=== PATIENT | female | born 1960 | race Caucasian/White ===

== ENCOUNTER 2018-05-20 13:36 | Emergency (ER) | payer OTHER ==
[2018-05-20] MEDS ORDERED: METHYLPREDNISOLONE 125 MG INJ ONE (13:54)
[2018-05-20] MEDS ORDERED: IPRATROPIUM BROM 0.5MG/2.5ML ONE (13:54)
[2018-05-20] MEDS ORDERED: ALBUTEROL 2.5 MG/3 ML NEB SOL ONE (13:54)
[2018-05-20] MEDS ORDERED: predniSONE 20 MG TAB ONE (13:58)
[2018-05-20 14:16] LABS: Absolute Lymphocytes (CBC) 1.1 K/uL (0.7-4.9); Absolute Monocytes 0.6 K/uL (0.1-1.3); Absolute Neutrophil 6.1 K/uL (1.8-8.0); Basophils % 0.2 % (0-1.3); Eosinophils % 1.1 % (0-4.4); Hematocrit 49.5 % (36.0-45.0); Lymphocytes % 14.4 % (15.3-44.8); MCH 32.9 pg (27.0-35.0); MCV 95.1 fL (80-100); MPV 7.6 fL (7.6-11.3); Monocytes % 7.3 % (3.3-12.3); RBC Red Blood Cell Count 5.21 M/uL (3.86-4.86)
[2018-05-20 14:20] LABS: Protime INR 0.98
[2018-05-20 14:50] LABS: ALT/SGPT 19 U/L (12-78); AST/SGOT 16 U/L (15-37); Albumin 3.9 g/dL (3.4-5.0); Alkaline Phosphatase 91 U/L (45-117); BUN Blood Urea Nitrogen 6 mg/dL (7-18); Bicarbonate 26 mmol/L (21-32); Bilirubin Direct 0.1 mg/dL (0-0.2); Bilirubin Total 0.5 mg/dL (0.2-1.0); CKMB Creatine Kinase MB < 1.0 ng/mL (0.3-3.6); Creatine Phosphokinase 31 U/L (26-192); Glucose Level 115 mg/dL (74-106); Magnesium 1.8 mg/dL (1.8-2.4); NT PRO-BNP 157 pg/mL (<125); Potassium 3.9 mmol/L (3.5-5.1); Protein, Total 7.2 g/dL (6.4-8.2); Sodium Level 132 mmol/L (136-145)
[2018-05-20 14:54] LABS: Alcohol Serum/Plasma < 3 mg/dL (0-3)
--- NOTE | 2018-05-20 14:57 | RAD REPORT ---
EXAM DESCRIPTION: RAD - Chest Single View - 05/20/2018 2:33 pm CLINICAL HISTORY: SOB Chest pain. COMPARISON: No comparisons FINDINGS: Portable technique limits examination quality. The lungs are grossly clear. The heart is normal in size. No displaced fractures. IMPRESSION: No acute intrathoracic process suspected.
--- NOTE | 2018-05-20 15:06 | EKG ---
Test Date: 2018-05-20 Test Time: 13:53:32 Vinyl Dipper: FERNANDO MEASUREMENT RESULTS: Intervals: Rate: 94 MI: 138 QRSD: 80 QT: 368 QTc: 460 [place]: P: 68 MI: 138 QRS: 70 T: 68 INTERPRETIVE STATEMENTS: Normal sinus rhythm Normal ECG No previous ECG available for comparison Electronically Signed On 05-20-18 15:06:03 CDT by Flaco Rayo
[2018-05-20] MEDS ORDERED: ACETAMINOPHEN 500 MG TAB ONE (15:39)
[2018-05-20] MEDS ORDERED: ONDANSETRON 4 MG (ODT) TAB ONE (15:40)
[2018-05-20] MEDS ORDERED: NA CHLORIDE 0.9% 1,000 ML ONE (16:00)
--- NOTE | 2018-05-20 16:13 | EDPHYS ---
Physician Documentation [facility] Name: Elvie Knott Age: 57 yrs Sex: Female : 1960 Arrival Date: 05/20/2018 Time: 13:44 Bed 26 Private MD: ED Physician Prasanth Nolen HPI: 05/20 14:05 This 57 yrs old Female presents to ER via EMS with complaints of Shortness Of pm1 Breath. 14:05 The patient has shortness of breath at rest. Onset: The symptoms/episode began/occurred pm1 today. Duration: The symptoms are continuous. The patient's shortness of breath is aggravated by nothing, is alleviated by nothing. Associated signs and symptoms: Pertinent positives: fever, nausea, vomiting, Pertinent negatives: chest pain, non-productive cough, productive cough. Severity of symptoms: in the emergency department the symptoms have improved. The patient has experienced similar episodes in the past, multiple times. The patient has not recently seen a physician. Historical: - Home Meds: 14:28 montelukast 10 mg oral tab 1 tab once daily [Active]; hydrochlorothiazide 25 mg Oral tl3 tab 1 tab once daily [Active]; Spiriva with HandiHaler 18 mcg inhalation CpDv 1 cap once daily [Active]; flunisolide 25 mcg (0.025 %) Nasal spry 2 sprays 2 times per day [Active]; sertraline 100 mg oral tab 2 tabs once daily [Active]; aspirin 81 mg Oral chew 1 tab once daily [Active]; Qvar 40 mcg/actuation inhalation aero 1 puff 2 times per day [Active]; Ventolin Rotahaler/Rotacaps Inhl daily [Active]; ProAir HFA 90 mcg/actuation inhalation HFAA 1 puff every 4 hours [Active]; - PMHx: 14:28 Depression; Hypertension; tl3 - Immunization history:: Adult Immunizations unknown. - Social history:: Smoking status: unknown. - Ebola Screening: : No symptoms or risks identified at this time. ROS: 14:05 Constitutional: Negative for fever, chills, and weight loss, Eyes: Negative for injury, pm1 pain, redness, and discharge, ENT: Negative for injury, pain, and discharge, Neck: Negative for injury, pain, and swelling, Cardiovascular: Negative for chest pain, palpitations, and edema. 14:05 Abdomen/GI: Negative for abdominal pain, nausea, vomiting, diarrhea, and constipation, Back: Negative for injury and pain, : Negative for injury, bleeding, discharge, and swelling, MS/Extremity: Negative for injury and deformity, Skin: Negative for injury, rash, and discoloration, Neuro: Negative for headache, weakness, numbness, tingling, and seizure. 14:05 Respiratory: Positive for shortness of breath, Negative for cough, sputum production, wheezing. Exam: 14:05 Constitutional: This is a well developed, well nourished patient who is awake, alert, pm1 and in no acute distress. Head/Face: Normocephalic, atraumatic. Eyes: Pupils equal round and reactive to light, extra-ocular motions intact. Lids and lashes normal. Conjunctiva and sclera are non-icteric and not injected. Cornea within normal limits. Periorbital areas with no swelling, redness, or edema. ENT: Nares patent. No nasal discharge, no septal abnormalities noted. Tympanic membranes are normal and external auditory canals are clear. Oropharynx with no redness, swelling, or masses, exudates, or evidence of obstruction, uvula midline. Mucous membranes moist. Neck: Trachea midline, no thyromegaly or masses palpated, and no cervical lymphadenopathy. Supple, full range of motion without nuchal rigidity, or vertebral point tenderness. No Meningismus. Chest/axilla: Normal chest wall appearance and motion. Nontender with no deformity. No lesions are appreciated. Cardiovascular: Regular rate and rhythm with a normal S1 and S2. No gallops, murmurs, or rubs. Normal PMI, no JVD. No pulse deficits. 14:05 Abdomen/GI: Soft, non-tender, with normal bowel sounds. No distension or tympany. No guarding or rebound. No evidence of tenderness throughout. Back: No spinal tenderness. No costovertebral tenderness. Full range of motion. Skin: Warm, dry with normal turgor. Normal color with no rashes, no lesions, and no evidence of cellulitis. MS/ Extremity: Pulses equal, no cyanosis. Neurovascular intact. Full, normal range of motion. 14:05 Respiratory: the patient does not display signs of respiratory distress, Respirations: normal, Breath sounds: rhonchi, are heard diffusely. 14:05 Neuro: Orientation: is normal, Motor: is normal, moves all fours. 16:11 Respiratory: the patient does not display signs of respiratory distress, Respirations: pm1 normal, Breath sounds: are clear throughout, no decreased breath sounds, no rales, rhonchi, no wheezing, improvement post breathing treatments given. Vital Signs: 13:50 BP 160 / 109; Pulse 98; Resp 20; Temp 98.7; Pulse Ox 97% on 2 lpm NC; tl3 14:28 BP 155 / 113 Supine; Pulse 95; tl3 14:28 BP 157 / 103 Sitting; Pulse 97; tl3 14:28 BP 129 / 109 Standing; Pulse 110; tl3 15:29 BP 120 / 88; Pulse 115; Resp 20; Pulse Ox 95% on R/A; tl3 17:34 BP 118 / 67; Pulse 112; Resp 18; Pulse Ox 95% ; tl3 19:32 BP 125 / 81; Pulse 105; Resp 18; Pulse Ox 95% on R/A; tl3 MDM: 13:45 Patient medically screened. pm1 16:10 ED course: patient without any symptoms of indications of Geodon withdrawal. Patient pm1 without abnormal body or facial movements post breathing treatments given. 16:11 Data reviewed: vital signs. Counseling: I had a detailed discussion with the patient pm1 and/or guardian regarding: the historical points, exam findings, and any diagnostic results supporting the discharge/admit diagnosis, lab results, radiology results, the need for outpatient follow up, to return to the emergency department if symptoms worsen or persist or if there are any questions or concerns that arise at home. 05/20 13:55 Order name: Basic Metabolic Panel; Complete Time: 15:04 pm1 05/20 13:55 Order name: CBC with Diff; Complete Time: 15:04 pm1 05/20 13:55 Order name: Ckmb; Complete Time: 15:04 pm1 05/20 13:55 Order name: CPK; Complete Time: 15:04 pm1 05/20 13:55 Order name: LFT's; Complete Time: 15:04 pm1 05/20 13:55 Order name: Magnesium; Complete Time: 15:04 pm1 05/20 13:55 Order name: NT PRO-BNP; Complete Time: 15:04 pm1 07/12 13:55 Order name: PT-INR; Complete Time: 15:04 pm1 05/20 13:55 Order name: Ptt, Activated; Complete Time: 15:04 pm1 05/20 13:55 Order name: Troponin (emerg Dept Use Only); Complete Time: 15:04 pm1 05/20 13:55 Order name: Acetaminophen; Complete Time: 15:04 pm1 05/20 13:55 Order name: ETOH Level; Complete Time: 15:04 pm1 05/20 13:55 Order name: Salicylate; Complete Time: 15:04 pm1 05/20 13:55 Order name: Urine Drug Screen; Complete Time: 18:34 pm1 05/20 13:55 Order name: Urine Test (obtain specimen); Complete Time: 19:37 pm1 05/20 13:55 Order name: XRAY Chest (1 view); Complete Time: 15:04 pm1 05/20 13:55 Order name: EKG; Complete Time: 13:56 pm1 05/20 13:55 Order name: Cardiac monitoring; Complete Time: 14:31 pm1 05/20 13:55 Order name: EKG - Nurse/Tech; Complete Time: 14:12 pm1 05/20 13:55 Order name: IV Saline Lock; Complete Time: 14:13 pm1 05/20 13:55 Order name: Labs collected and sent; Complete Time: 14:13 pm1 05/20 15:27 Order name: Glucose, Ancillary Testing; Complete Time: 15:35 EDMS 05/20 17:57 Order name: Urine Dipstick--Ancillary (enter results); Complete Time: 18:34 ag 05/20 17:57 Order name: Urine --Ancillary (enter results); Complete Time: 18:34 ag 05/20 13:55 Order name: O2 Per Protocol; Complete Time: 14:13 pm1 05/20 13:55 Order name: O2 Sat Monitoring; Complete Time: 14:13 pm1 05/20 13:55 Order name: Urine Dipstick-Ancillary (obtain specimen); Complete Time: 14:31 pm1 Administered Medications: 13:55 Drug: Albuterol - atroVENT (3:1) (2.5 mg - 0.5 mg) 3 ml Route: Nebulizer; tl3 15:31 Follow up: Response: Wheezing diminished tl3 13:55 Drug: predniSONE 60 mg Route: PO; tl3 15:31 Follow up: Response: No adverse reaction tl3 15:35 Drug: Tylenol 1000 mg Route: PO; mg2 19:35 Follow up: Response: No adverse reaction; Pain is decreased tl3 15:35 Drug: Zofran 4 mg Route: PO; mg2 19:34 Follow up: Response: No adverse reaction tl3 15:54 CANCELLED (Duplicate Order): Zofran 4 mg IVP once; over 2 minutes mg2 15:55 Drug: NS 0.9% 500 ml Route: IV; Rate: bolus; Site: right forearm; Delivery: Primary mg2 tubing; 17:39 Follow up: IV Status: Completed infusion; IV Intake: 500ml tl3 Point of Care Testing: Blood Glucose: 13:50 Blood Glucose: 98 mg/dL; jp3 Ranges: Critical Glucose Levels:Adult <50 mg/dl or >400 mg/dl <40 mg/dl or >180 mg/dl Disposition: 05/21 14:16 Co-signature as Attending Physician, Prasanth Nolen MD I agree with the assessment and kdr plan of care. Disposition: 05/20/18 16:12 Discharged to Home. Impression: Chronic obstructive pulmonary disease with (acute) exacerbation. - Condition is Stable. - Discharge Instructions: Chronic Obstructive Pulmonary Disease, How to Use an Inhaler. - Prescriptions for Prednisone 20 mg Oral Tablet - take 3 tablet by ORAL route once daily for 5 days; 15 tablet. Albuterol Sulfate 90 mcg/actuation - inhale 1-2 puff by INHALATION route every 4-6 hours; 1 Inhaler. - Medication Reconciliation Form, Thank You Letter, Antibiotic Education form. - Follow up: Emergency Department; When: As needed; Reason: Worsening of condition. Follow up: Private Physician; When: 2 - 3 days; Reason: Recheck today's complaints, Continuance of care, Re-evaluation by your physician. - Problem is new. - Symptoms have improved. Signatures: Dispatcher [employer] EDMS Prasanth Nolen MD MD kdr Shankar Kenney NP RESOURCE ENGINEER pm1 Jen Bae RN RN tl3 Ever Greene RN RN mg2 Corrections: (The following items were deleted from the chart) 05/20 15:54 15:35 Zofran 4 mg IVP once; over 2 minutes ordered. pm1 mg2 15:54 15:54 Zofran 4 mg IVP once; over 2 minutes ordered. mg2 mg2 19:36 16:12 05/20/2018 16:12 Discharged to Home. Impression: Chronic obstructive pulmonary tl3 disease with (acute) exacerbation. Condition is Stable. Forms are Medication Reconciliation Form, Thank You Letter, Antibiotic Education, Prescription Opioid Use. Follow up: Emergency Department; When: As needed; Reason: Worsening of condition. Follow up: Private Physician; When: 2 - 3 days; Reason: Recheck today's complaints, Continuance of care, Re-evaluation by your physician. Problem is new. Symptoms have improved. pm1
--- NOTE | 2018-05-20 16:13 | ER ---
Nurse's Notes [facility] Name: Elive Knott Age: 57 yrs Sex: Female : 1960 Arrival Date: 05/20/2018 Time: 13:44 Bed 26 Private MD: Diagnosis: Chronic obstructive pulmonary disease with (acute) exacerbation Presentation: 05/20 13:44 Presenting complaint: EMS [place], she has run out of tl3 her Haldol and thinks she is going thru withdrawal symptoms, hx of COPD needed supplemental O2 to maintain sats, BBS coarse with wheezing throughout. Transition of care: patient was not received from another setting of care. Onset of symptoms was May 20, 2018 at 13:47. Risk Assessment: Do you want to hurt yourself or someone else? Patient reports no desire to harm self or others. Initial Sepsis Screen: Does the patient meet any 2 criteria? No. Patient's initial sepsis screen is negative. Does the patient have a suspected source of infection? No. Patient's initial sepsis screen is negative. Care prior to arrival: None. 13:44 Method Of Arrival: EMS: [facility] tl3 13:44 Acuity: NORY 3 tl3 Triage Assessment: 13:44 General: Appears distressed, uncomfortable, unkempt, Behavior is cooperative, tl3 appropriate for age. Pain: Denies pain. EENT: No signs and/or symptoms were reported regarding the EENT system. Neuro: Level of Consciousness is awake, alert, obeys commands, Oriented to person, place, time, situation, Appropriate for age. Cardiovascular: Heart tones S1 S2 present Patient's skin is warm and dry. Respiratory: Reports shortness of breath at rest Onset: The symptoms/episode began/occurred gradually, the patient has moderate shortness of breath. GI: No signs and/or symptoms were reported involving the gastrointestinal system. : No signs and/or symptoms were reported regarding the genitourinary system. Derm: No signs and/or symptoms reported regarding the dermatologic system. Musculoskeletal: No signs and/or symptoms reported regarding the musculoskeletal system. Historical: - Home Meds: 14:28 montelukast 10 mg oral tab 1 tab once daily [Active]; hydrochlorothiazide 25 mg Oral tl3 tab 1 tab once daily [Active]; Spiriva with HandiHaler 18 mcg inhalation CpDv 1 cap once daily [Active]; flunisolide 25 mcg (0.025 %) Nasal spry 2 sprays 2 times per day [Active]; sertraline 100 mg oral tab 2 tabs once daily [Active]; aspirin 81 mg Oral chew 1 tab once daily [Active]; Qvar 40 mcg/actuation inhalation aero 1 puff 2 times per day [Active]; Ventolin Rotahaler/Rotacaps Inhl daily [Active]; ProAir HFA 90 mcg/actuation inhalation HFAA 1 puff every 4 hours [Active]; - PMHx: 14:28 Depression; Hypertension; tl3 - Immunization history:: Adult Immunizations unknown. - Social history:: Smoking status: unknown. - Ebola Screening: : No symptoms or risks identified at this time. Screenin:28 Abuse screen: Denies threats or abuse. Nutritional screening: No deficits noted. tl3 Tuberculosis screening: No symptoms or risk factors identified. Fall Risk None identified. Assessment: 14:22 Reassessment: No changes from previously documented assessment. Cardiovascular: Rhythm tl3 is regular. Respiratory: Airway is patent Respiratory effort is even, labored, Respiratory pattern is regular, symmetrical, Breath sounds are coarse bilaterally. Breath sounds with wheezes bilaterally. 15:29 Reassessment: Patient appears in no apparent distress at this time. Patient and/or tl3 family updated on plan of care and expected duration. Pain level reassessed. Patient is alert, oriented x 3, equal unlabored respirations, skin warm/dry/pink. pt feels much better, BBS clear. 17:34 Reassessment: Patient appears in no apparent distress at this time. No changes from tl3 previously documented assessment. Patient and/or family updated on plan of care and expected duration. Pain level reassessed. Patient is alert, oriented x 3, equal unlabored respirations, skin warm/dry/pink. pt able to ambulate to for urine sample. 19:32 Reassessment: Patient appears in no apparent distress at this time. No changes from tl3 previously documented assessment. Patient and/or family updated on plan of care and expected duration. Pain level reassessed. Patient is alert, oriented x 3, equal unlabored respirations, skin warm/dry/pink. Vital Signs: 13:50 BP 160 / 109; Pulse 98; Resp 20; Temp 98.7; Pulse Ox 97% on 2 lpm NC; tl3 14:28 BP 155 / 113 Supine; Pulse 95; tl3 14:28 BP 157 / 103 Sitting; Pulse 97; tl3 14:28 BP 129 / 109 Standing; Pulse 110; tl3 15:29 BP 120 / 88; Pulse 115; Resp 20; Pulse Ox 95% on R/A; tl3 17:34 BP 118 / 67; Pulse 112; Resp 18; Pulse Ox 95% ; tl3 19:32 BP 125 / 81; Pulse 105; Resp 18; Pulse Ox 95% on R/A; tl3 ED Course: 13:44 Patient arrived in ED. tl3 13:44 Jen Bae, [place] is Primary Nurse. tl3 13:45 Shankar Kenney NP is PHCP. pm1 13:45 Prasanth Nolen MD is Attending Physician. pm1 13:47 Triage completed. tl3 13:50 Initial lab(s) drawn, by ut, sent to lab. Inserted saline lock: 22 gauge in right jp3 forearm, using aseptic technique. Blood collected. 13:50 Arm band placed on left wrist. tl3 14:01 EKG done, by certified surgical technologist. reviewed by Shankar Kenney NP. sm3 14:28 No provider procedures requiring assistance completed. tl3 14:28 Patient has correct armband on for positive identification. Placed in gown. Bed in low tl3 position. Call light in reach. Side rails up X 1. personnel monitor on. Pulse ox on. NIBP on. Door closed. Noise minimized. Lights dimmed. Warm blanket given. 14:30 XRAY Chest (1 view) Sent. tl3 14:32 XRAY Chest (1 view) In Process Unspecified. EDMS 17:30 Urine collected: clean catch specimen, clear, юлия colored. jp3 19:02 Diet: Patient given water. jp3 19:36 IV discontinued, intact, bleeding controlled, No redness/swelling at site. Pressure tl3 dressing applied. Administered Medications: 13:55 Drug: Albuterol - atroVENT (3:1) (2.5 mg - 0.5 mg) 3 ml Route: Nebulizer; tl3 15:31 Follow up: Response: Wheezing diminished tl3 13:55 Drug: predniSONE 60 mg Route: PO; tl3 15:31 Follow up: Response: No adverse reaction tl3 15:35 Drug: Tylenol 1000 mg Route: PO; mg2 19:35 Follow up: Response: No adverse reaction; Pain is decreased tl3 15:35 Drug: Zofran 4 mg Route: PO; mg2 19:34 Follow up: Response: No adverse reaction tl3 15:54 CANCELLED (Duplicate Order): Zofran 4 mg IVP once; over 2 minutes mg2 15:55 Drug: NS 0.9% 500 ml Route: IV; Rate: bolus; Site: right forearm; Delivery: Primary mg2 tubing; 17:39 Follow up: IV Status: Completed infusion; IV Intake: 500ml tl3 Point of Care Testing: Blood Glucose: 13:50 Blood Glucose: 98 mg/dL; jp3 Ranges: Intake: 17:39 IV: 500ml; Total: 500ml. tl3 Outcome: 16:12 Discharge ordered by MD. pm1 19:32 Discharged to home ambulatory. tl3 19:32 Condition: stable 19:32 Discharge instructions given to patient, Instructed on discharge instructions, follow up and referral plans. medication usage, Demonstrated understanding of instructions, follow-up care, medications, Prescriptions given X 2. 19:36 Patient left the ED. tl3 Signatures: Dispatcher [employer] EDMS Shankar Kenney NP DICE TABLE OPERATOR pm1 Jen Bae RN RN tl3 Ever Greene RN RN mg2 Petrona Srinivasan sm3 Chang [place] jp3 Corrections: (The following items were deleted from the chart) 15:54 15:35 Zofran 4 tablet IVP in Other mg2 mg2 18:27 15:30 Urine collected: clean catch specimen, clear, юлия colored, jp3 jp3 19:36 19:01 IV discontinued, intact, bleeding controlled, No redness/swelling at site. tl3 Pressure dressing applied, jp3
[2018-05-20 18:12] LABS: Barbiturates NEGATIVE (NEGATIVE); Benzodiazepines POSITIVE (NEGATIVE); Cocaine NEGATIVE (NEGATIVE); METHAMPHETAM NEGATIVE (NEGATIVE); Methadone NEGATIVE (NEGATIVE); Opiates NEGATIVE (NEGATIVE); Phencyclidine NEGATIVE (NEGATIVE); THC Cannibis POSITIVE (NEGATIVE)
[2018-05-20 18:32] LABS: Urine Blood TRACE (NEG); Urine Glucose NEGATIVE (NEG); Urine Protein 1+ (NEG); Urine Specific Gravity 1.025 (1.005-1.030); Urine pH 6.5 (5.0-7.0)
== END 2018-05-20 19:36 | disposition home or self-care (01) ==
LOC: ER 13:36
DX: J44.1 Chronic obstructive pulmonary disease with (acute) exacerbation (principal); I10 Essential (primary) hypertension; F32.9 Major depressive disorder, single episode, unspecified; Z79.82 Long term (current) use of aspirin
CPT/HCPCS: 36415; 71045; 80048; 80076; 80307; 80320; 80329; 81003; 81025; 82550; 82553; 82962; 83735; 83880; 84484; 85025; 85610; 85730; 93005; 94640; 96360; 96361; 99285; J2930; J7030; J7512

== ENCOUNTER 2018-09-16 07:58 | Emergency (ER) | payer OTHER ==
--- NOTE | 2018-09-16 08:39 | ER ---
Nurse's Notes [facility] Name: Elvie Knott Age: 58 yrs Sex: Female : 1960 Arrival Date: 09/16/2018 Time: 08:02 Bed 17 Private MD: None, None Diagnosis: Local infection of the skin and subcutaneous tissue, unspecified Presentation: 09/16 08:18 Presenting complaint: Patient states: Infected bug bite on left forearm x 1 week. hb Transition of care: patient was not received from another setting of care. Onset of symptoms was September 16, 2018. Risk Assessment: Do you want to hurt yourself or someone else? Patient reports no desire to harm self or others. Initial Sepsis Screen: Does the patient meet any 2 criteria? No. Patient's initial sepsis screen is negative. Does the patient have a suspected source of infection? No. Patient's initial sepsis screen is negative. Care prior to arrival: None. 08:18 Method Of Arrival: Ambulatory hb 08:18 Acuity: NORY 4 hb Triage Assessment: 08:25 Bite description: by animal information: vaccination(s) is not applicable. rb1 08:25 Bite description: bite sustained to left arm. rb1 Historical: - Allergies: 08:21 No Known Allergies; hb - Home Meds: 08:20 aspirin 81 mg Oral chew 1 tab once daily [Active]; flunisolide 25 mcg (0.025 %) Nasal hb spry 2 sprays 2 times per day [Active]; hydrochlorothiazide 25 mg Oral tab 1 tab once daily [Active]; montelukast 10 mg Oral tab 1 tab once daily [Active]; ProAir HFA 90 mcg/actuation inhalation HFAA 1 puff every 4 hours [Active]; Qvar 40 mcg/actuation inhalation aero 1 puff 2 times per day [Active]; sertraline 100 mg Oral tab 2 tabs once daily [Active]; Spiriva with HandiHaler 18 mcg inhalation CpDv 1 cap once daily [Active]; Ventolin Rotahaler/Rotacaps Inhl daily [Active]; - PMHx: 08:20 Depression; Hypertension; hb - Immunization history:: Adult Immunizations up to date. - Social history:: Smoking status: Patient uses tobacco products, smokes one pack cigarettes per day. - Ebola Screening: : No symptoms or risks identified at this time. Screenin:20 Abuse screen: Denies threats or abuse. Denies injuries from another. Nutritional hb screening: No deficits noted. Tuberculosis screening: No symptoms or risk factors identified. Fall Risk None identified. Assessment: 08:25 General: Appears in no apparent distress. comfortable, Behavior is calm, cooperative, rb1 Denies fever. Pain: Denies pain. Neuro: Level of Consciousness is awake, alert, obeys commands, Oriented to person, place, time, situation. Cardiovascular: Capillary refill < 3 seconds is brisk in bilateral fingers. Respiratory: Airway is patent Respiratory effort is even, unlabored, Respiratory pattern is regular, symmetrical. GI: No signs and/or symptoms were reported involving the gastrointestinal system. : No signs and/or symptoms were reported regarding the genitourinary system. Derm: Skin scab noted on left forearm. The bite is red and raised. Skin is red. Musculoskeletal: Range of motion: intact in all extremities. Vital Signs: 08:17 BP 154 / 102; Pulse 89; Resp 20; Temp 97.9; Pulse Ox 97% on R/A; Pain 1/10; hb ED Course: 08:02 Patient arrived in ED. sb2 08:02 None, None is Private Physician. sb2 08:17 Sandip Thomas PA is PHCP. jr8 08:17 Prasanth Nolen MD is Attending Physician. jr8 08:17 Arm band placed on right wrist. hb 08:19 Triage completed. hb 08:25 Patient has correct armband on for positive identification. Bed in low position. Call rb1 light in reach. Side rails up X 1. Pulse ox on. NIBP on. 08:30 Marni Denton, RN is Primary Nurse. rb1 08:55 No provider procedures requiring assistance completed. Patient did not have IV access rb1 during this emergency room visit. Administered Medications: No medications were administered Outcome: 08:38 Discharge ordered by . jr8 08:55 Discharged to home ambulatory. rb1 08:55 Condition: stable 08:55 Discharge instructions given to patient, Instructed on discharge instructions, follow up and referral plans. medication usage, Demonstrated understanding of instructions, follow-up care, medications, Prescriptions given X 1. 08:57 Patient left the ED. rb1 Signatures: Sandip Thomas PA PA jr8 Marni Denton, RN RN rb1 Elina Banks, RN RN hb Camila, Gina sb2
--- NOTE | 2018-09-16 08:39 | EDPHYS ---
Physician Documentation [facility] Name: Elvie Knott Age: 58 yrs Sex: Female : 1960 Arrival Date: 09/16/2018 Time: 08:02 Bed 17 Private MD: None, None ED Physician Prasanth Nolen HPI: 09/16 08:30 This 58 yrs old Female presents to ER via Ambulatory with complaints of jr8 Insect Bite. 08:30 Patient stated that she has had this pimple like structure with scab on it on her left jr8 dorsal forearm for about 2 weeks. Stated that she accidently scratched it and is now bleeding. This morning saw redness around it and was worried that it was becoming infected . Severity of symptoms: At their worst the symptoms were mild in the emergency department the symptoms are unchanged. The patient has not experienced similar symptoms in the past. The patient has not recently seen a physician. Historical: - Allergies: 08:21 No Known Allergies; hb - Home Meds: 08:20 aspirin 81 mg Oral chew 1 tab once daily [Active]; flunisolide 25 mcg (0.025 %) Nasal hb spry 2 sprays 2 times per day [Active]; hydrochlorothiazide 25 mg Oral tab 1 tab once daily [Active]; montelukast 10 mg Oral tab 1 tab once daily [Active]; ProAir HFA 90 mcg/actuation inhalation HFAA 1 puff every 4 hours [Active]; Qvar 40 mcg/actuation inhalation aero 1 puff 2 times per day [Active]; sertraline 100 mg Oral tab 2 tabs once daily [Active]; Spiriva with HandiHaler 18 mcg inhalation CpDv 1 cap once daily [Active]; Ventolin Rotahaler/Rotacaps Inhl daily [Active]; - PMHx: 08:20 Depression; Hypertension; hb - Immunization history:: Adult Immunizations up to date. - Social history:: Smoking status: Patient uses tobacco products, smokes one pack cigarettes per day. - Ebola Screening: : No symptoms or risks identified at this time. ROS: 08:30 Constitutional: Negative for fever, chills, and weight loss. jr8 08:30 Skin: Positive for lesions, of the left arm. 08:30 All other systems are negative. Exam: 08:30 Constitutional: This is a well developed, well nourished patient who is awake, alert, jr8 and in no acute distress. Cardiovascular: Regular rate and rhythm with a normal S1 and S2. No gallops, murmurs, or rubs. Normal PMI, no JVD. No pulse deficits. Respiratory: Lungs have equal breath sounds bilaterally, clear to auscultation and percussion. No rales, rhonchi or wheezes noted. No increased work of breathing, no retractions or nasal flaring. MS/ Extremity: Pulses equal, no cyanosis. Neurovascular intact. Full, normal range of motion. Neuro: Awake and alert, GCS 15, oriented to person, place, time, and situation. Cranial nerves II-XII grossly intact. Motor strength 5/5 in all extremities. Sensory grossly intact. Cerebellar exam normal. Normal gait. 08:30 Skin: Patient has flesh colored, raised, round lesion about 1.5 cm in diameter to her left dorsal forearm near the wrist region. Scab on top of it with mild bleeding. Extending about 1 cm around the lesion is erythema without induration. No streaking noted. Lesion is movable on the skin and firm to touch. No fluctuance present . Vital Signs: 08:17 BP 154 / 102; Pulse 89; Resp 20; Temp 97.9; Pulse Ox 97% on R/A; Pain 1/10; hb MDM: 08:18 Patient medically screened. 8 08:30 Data reviewed: vital signs, nurses notes, and as a result, I will discharge patient. 8 Data interpreted: Pulse oximetry: on room air is 97 %. Interpretation: normal. Counseling: I had a detailed discussion with the patient and/or guardian regarding: the historical points, exam findings, and any diagnostic results supporting the discharge/admit diagnosis, the need for outpatient follow up, a kiln charger, to return to the emergency department if symptoms worsen or persist or if there are any questions or concerns that arise at home. ED course: Discussed with patient that we will put he on antibiotics for the erythema to cover for local skin infection. Otherwise will need to follow up with dermatology for possible excision of that lesion. Patient good with this plan . Administered Medications: No medications were administered Disposition: 09:38 Co-signature as Attending Physician, Prasanth Nolen MD I agree with the assessment and kdr plan of care. Disposition: 09/16/18 08:38 Discharged to Home. Impression: Local infection of the skin and subcutaneous tissue, unspecified. - Condition is Stable. - Discharge Instructions: Cellulitis, Adult. - Prescriptions for Bactrim DS 800- 160 mg Oral Tablet - take 1 tablet by ORAL route every 12 hours for 10 days; 20 tablet. - Medication Reconciliation Form, Thank You Letter, Antibiotic Education, Prescription Opioid Use form. - Follow up: Private Physician; When: 1 - 2 days; Reason: Recheck today's complaints, Continuance of care, Re-evaluation by your physician. - Problem is new. - Symptoms have improved. - Notes: [facility] [phone] Signatures: Prasanth Nolen MD MD kdr Roszak, Josh, PA PA jr8 Marni Denton, RN RN rb1 Elina Banks RN RN Corrections: (The following items were deleted from the chart) 08:57 08:38 09/16/2018 08:38 Discharged to Home. Impression: Local infection of the skin and rb1 subcutaneous tissue, unspecified. Condition is Stable. Forms are Medication Reconciliation Form, Thank You Letter, Antibiotic Education, Prescription Opioid Use. Follow up: Private Physician; When: 1 - 2 days; Reason: Recheck today's complaints, Continuance of care, Re-evaluation by your physician. Problem is new. Symptoms have improved. jr8
== END 2018-09-16 08:57 | disposition home or self-care (01) ==
LOC: ER 07:58
DX: L08.9 Local infection of the skin and subcutaneous tissue, unspecified (principal); I10 Essential (primary) hypertension; F32.9 Major depressive disorder, single episode, unspecified; F17.210 Nicotine dependence, cigarettes, uncomplicated; Z79.82 Long term (current) use of aspirin
CPT/HCPCS: 99283

== ENCOUNTER 2018-11-15 18:35 | Emergency (ER) | payer OTHER ==
--- OUTSIDE RECORDS SUMMARY | 2018-11-15 18:37 | XMS REPORT ---
:1960 Author Organization [facility] Address [address] [place] [address] Dr. Casanova [address] [place] [id number] Care Team Providers Name Role Phone Unavailable Unavailable Unavailable Problems This patient has no known problems. Allergies, Adverse Reactions, Alerts This patient has no known allergies or adverse reactions. Medications This patient has no known medications.
[2018-11-15] MEDS ORDERED: LIDOCAINE VISCOUS 2% SOLN 15 ML UDC ONE (20:26)
--- NOTE | 2018-11-15 21:05 | EDPHYS ---
Physician Documentation [facility] Name: Elvie Knott Age: 58 yrs Sex: Female : 1960 Arrival Date: 11/15/2018 Time: 18:36 Bed 27 Private MD: None, None ED Physician Harvey Draper HPI: 11/15 19:53 This 58 yrs old Female presents to ER via Ambulatory with complaints of Sore kb Throat, Vomiting/Diarrhea. 19:53 The patient presents with sore throat. The patient describes throat pain as constant. kb Onset: The symptoms/episode began/occurred 3 day(s) ago. Severity of symptoms: At their worst the symptoms were mild, moderate, in the emergency department the symptoms are unchanged. Modifying factors: The symptoms are alleviated by nothing, the symptoms are aggravated by swallowing, Patient's oral intake status: good unaware of sick contact. Associated signs and symptoms: Pertinent positives: Sore throat body aches. The patient has not experienced similar symptoms in the past. The patient has not recently seen a physician. Historical: - Allergies: 18:53 Codeine; aa5 18:53 Adhesives; aa5 - PMHx: 18:53 Depression; Hypertension; COPD; aa5 - PSHx: 18:53 ; Hysterectomy; Tonsillectomy; Appendectomy; aa5 - Immunization history:: Flu vaccine is not up to date. - Social history:: Smoking status: Patient uses tobacco products, 5 cigarettes a day . - Ebola Screening: : No symptoms or risks identified at this time. ROS: 19:52 Cardiovascular: Negative for chest pain, palpitations, and edema, Respiratory: Negative kb for shortness of breath, cough, wheezing, and pleuritic chest pain, Abdomen/GI: Negative for abdominal pain, nausea, vomiting, diarrhea, and constipation, Back: Negative for injury and pain, MS/Extremity: Negative for injury and deformity, Skin: Negative for injury, rash, and discoloration, Neuro: Negative for headache, weakness, numbness, tingling, and seizure. 19:52 Constitutional: Positive for body aches, malaise, Negative for chills, fatigue, fever, poor PO intake, weight loss. 19:52 ENT: Positive for sore throat. Exam: 19:52 Constitutional: This is a well developed, well nourished patient who is awake, alert, kb and in no acute distress. Head/Face: Normocephalic, atraumatic. ENT: Nares patent. No nasal discharge, no septal abnormalities noted. Tympanic membranes are normal and external auditory canals are clear. Oropharynx with no redness, swelling, or masses, exudates, or evidence of obstruction, uvula midline. Mucous membranes moist. Neck: Trachea midline, no thyromegaly or masses palpated, and no cervical lymphadenopathy. Supple, full range of motion without nuchal rigidity, or vertebral point tenderness. No Meningismus. Chest/axilla: Normal chest wall appearance and motion. Nontender with no deformity. No lesions are appreciated. Cardiovascular: Regular rate and rhythm with a normal S1 and S2. No gallops, murmurs, or rubs. Normal PMI, no JVD. No pulse deficits. Respiratory: Lungs have equal breath sounds bilaterally, clear to auscultation and percussion. No rales, rhonchi or wheezes noted. No increased work of breathing, no retractions or nasal flaring. Abdomen/GI: Soft, non-tender, with normal bowel sounds. No distension or tympany. No guarding or rebound. No evidence of tenderness throughout. Back: No spinal tenderness. No costovertebral tenderness. Full range of motion. Skin: Warm, dry with normal turgor. Normal color with no rashes, no lesions, and no evidence of cellulitis. MS/ Extremity: Pulses equal, no cyanosis. Neurovascular intact. Full, normal range of motion. Neuro: Awake and alert, GCS 15, oriented to person, place, time, and situation. Cranial nerves II-XII grossly intact. Motor strength 5/5 in all extremities. Sensory grossly intact. Cerebellar exam normal. Normal gait. Vital Signs: 18:53 BP 141 / 104; Pulse 97; Resp 20 S; Temp 98.3(O); Pulse Ox 96% on R/A; Pain 10/10; aa5 20:00 BP 140 / 103; Pulse 90; Resp 20; Pulse Ox 97% on R/A; ea 20:55 BP 146 / 89; Pulse 90; Resp 19; Pulse Ox 98% on R/A; ea MDM: 19:16 Patient medically screened. kb 19:52 Data reviewed: vital signs, nurses notes. Data interpreted: Pulse oximetry: on room air kb is 96 %. Interpretation: normal. 21:03 Counseling: I had a detailed discussion with the patient and/or guardian regarding: the kb historical points, exam findings, and any diagnostic results supporting the discharge/admit diagnosis, lab results, the need for outpatient follow up, a family practitioner, to return to the emergency department if symptoms worsen or persist or if there are any questions or concerns that arise at home. 11/15 19:26 Order name: Flu; Complete Time: 20:08 kb 11/15 19:26 Order name: Strep; Complete Time: 20:08 kb 11/15 20:05 Order name: Throat Culture [facility] 11/15 20:09 Order name: PO challenge; Complete Time: 20:15 kb Administered Medications: 20:28 Drug: Viscous Lidocaine Liquid (4 %) 5 ml Route: Mucous Membrane; ea 20:45 Follow up: Response: No adverse reaction ea Disposition: 11/16 07:31 Co-signature as Attending Physician, Harvey Draper MD I agree with the assessment and lee plan of care. Disposition: 11/15/18 21:04 Discharged to Home. Impression: Acute pharyngitis. - Condition is Stable. - Discharge Instructions: Pharyngitis, [id number], Viral Respiratory Infection, [id number]. - Medication Reconciliation Form, Thank You Letter, Antibiotic Education, Prescription Opioid Use form. - Follow up: Emergency Department; When: As needed; Reason: Worsening of condition. Follow up: Private Physician; When: 2 - 3 days; Reason: Recheck today's complaints, Continuance of care, Re-evaluation by your physician. Signatures: Dispatcher [employer] [facility] Macie Garcia, TY-Aidan CRAWFORD-Harvey Neri MD MD cha Calderon, Audri, RN RN aa5 Stefany Will RN RN ea Corrections: (The following items were deleted from the chart) 11/15 21:16 21:04 11/15/2018 21:04 Discharged to Home. Impression: Acute pharyngitis. Condition is ea Stable. Forms are Medication Reconciliation Form, Thank You Letter, Antibiotic Education, Prescription Opioid Use. Follow up: Emergency Department; When: As needed; Reason: Worsening of condition. Follow up: Private Physician; When: 2 - 3 days; Reason: Recheck today's complaints, Continuance of care, Re-evaluation by your physician. kb
--- NOTE | 2018-11-15 21:05 | ER ---
Nurse's Notes [facility] Name: Elvie Knott Age: 58 yrs Sex: Female : 1960 Arrival Date: 11/15/2018 Time: 18:36 Bed 27 Private MD: None, None Diagnosis: Acute pharyngitis Presentation: 11/15 18:51 Presenting complaint: Patient states: SOB, cough, sore throat, nausea, vomiting, and aa5 diarrhea that began 3 days ago. Pt also reports headache and back pain. Transition of care: patient was not received from another setting of care. Onset of symptoms was November 2018. Risk Assessment: Do you want to hurt yourself or someone else? Patient reports no desire to harm self or others. Initial Sepsis Screen: Does the patient meet any 2 criteria? No. Patient's initial sepsis screen is negative. Does the patient have a suspected source of infection? No. Patient's initial sepsis screen is negative. Care prior to arrival: None. 18:51 Method Of Arrival: Ambulatory aa5 18:51 Acuity: NORY 3 aa5 Historical: - Allergies: 18:53 Codeine; aa5 18:53 Adhesives; aa5 - PMHx: 18:53 Depression; Hypertension; COPD; aa5 - PSHx: 18:53 ; Hysterectomy; Tonsillectomy; Appendectomy; aa5 - Immunization history:: Flu vaccine is not up to date. - Social history:: Smoking status: Patient uses tobacco products, 5 cigarettes a day . - Ebola Screening: : No symptoms or risks identified at this time. Screenin:43 Abuse screen: Denies threats or abuse. Nutritional screening: No deficits noted. ea Tuberculosis screening: No symptoms or risk factors identified. Fall Risk None identified. Assessment: 19:35 General: Appears uncomfortable, Behavior is calm, cooperative, appropriate for age. ea Pain: Complains of pain in throat Quality of pain is described as "raw". Neuro: Level of Consciousness is awake, alert, obeys commands, Oriented to person, place, time. Cardiovascular: Patient's skin is warm and dry. Respiratory: Airway is patent Respiratory effort is even, unlabored, Respiratory pattern is regular, symmetrical, Breath sounds are clear bilaterally. GI: Parent/caregiver reports the patient having nausea. : No signs and/or symptoms were reported regarding the genitourinary system. EENT: Throat is pink. Derm: Skin is pink, warm \\T\\ dry. 20:30 Reassessment: Patient and/or family updated on plan of care and expected duration. Pain ea level reassessed. Patient is alert, oriented x 3, equal unlabored respirations, skin warm/dry/pink. Patient states feeling better. 21:13 Reassessment: Patient and/or family updated on plan of care and expected duration. Pain ea level reassessed. Patient is alert, oriented x 3, equal unlabored respirations, skin warm/dry/pink. Discharge instruction given to patient, verbalized the understanding of isntruction Patient states feeling better. Vital Signs: 18:53 BP 141 / 104; Pulse 97; Resp 20 S; Temp 98.3(O); Pulse Ox 96% on R/A; Pain 10/10; aa5 20:00 BP 140 / 103; Pulse 90; Resp 20; Pulse Ox 97% on R/A; ea 20:55 BP 146 / 89; Pulse 90; Resp 19; Pulse Ox 98% on R/A; ea ED Course: 18:36 Patient arrived in ED. sb2 18:37 None, None is Private Physician. sb2 18:52 Triage completed. aa5 18:52 Arm band placed on. aa5 19:15 Macie Garcia FNP-C is [facility]. kb 19:15 Harvey Draper MD is Attending Physician. kb 19:35 Stefany Will RN is Primary Nurse. ea 19:43 Patient has correct armband on for positive identification. Bed in low position. Call ea light in reach. 21:13 No provider procedures requiring assistance completed. Patient did not have IV access ea during this emergency room visit. Administered Medications: 20:28 Drug: Viscous Lidocaine Liquid (4 %) 5 ml Route: Mucous Membrane; ea 20:45 Follow up: Response: No adverse reaction ea Outcome: 21:04 Discharge ordered by . kb 21:15 Discharged to home ambulatory. ea 21:15 Condition: improved 21:15 Discharge instructions given to patient, Instructed on discharge instructions, follow up and referral plans. Demonstrated understanding of instructions, follow-up care. 21:16 Patient left the ED. ea Signatures: Macie Garcia FNP-C FNP-Ckb Calderon, Audri, RN RN aa5 Stefany Will, RN RN ea Camila, Gina sb2
== END 2018-11-15 21:16 | disposition home or self-care (01) ==
LOC: ER 18:35
DX: J02.9 Acute pharyngitis, unspecified (principal); F17.210 Nicotine dependence, cigarettes, uncomplicated
CPT/HCPCS: 87070; 87081; 87804; 99283